=== PATIENT | male | born 1955 | race Caucasian/White ===

== ENCOUNTER 2017-10-30 08:22 | Outpatient (CLI) | payer OTHER ==
[2017-10-30 09:02] LABS: eGFR (African) > 60; eGFR (Non-African) > 60
== END 2017-10-30 08:23 ==
LOC: LAB 08:22
PROVIDERS: ATTEND Internal Medicine Cardiovascular Disease
DX: I25.10 Atherosclerotic heart disease of native coronary artery without angina pectoris (principal); Z95.1 Presence of aortocoronary bypass graft
CPT/HCPCS: 36415; 80048; 80061; 83036

== ENCOUNTER 2017-12-11 11:04 | Outpatient (CLI) | payer OTHER ==
[2017-12-11 11:22] LABS: MEAN CORPUSCULAR VOLUME 96.1 fl (80.0-100.0)
== END 2017-12-11 11:05 ==
LOC: LAB 11:04
PROVIDERS: ATTEND Surgery
DX: K56.609 Unspecified intestinal obstruction, unspecified as to partial versus complete obstruction (principal)
CPT/HCPCS: 36415; 85027